=== PATIENT | female | born 1995 | race Caucasian/White ===

== ENCOUNTER 2018-05-29 10:43 | Inpatient (IN) | payer MEDICAID, OTHER ==
[~2018-05-29] VITALS: Ht 162.6 cm; Wt 61.2 kg
[2018-05-29 11:32] VITALS: BP 103/55
[2018-05-29] MEDS ORDERED: ACETAMINOPHEN 325 MG TAB PO ONE (12:10)
[2018-05-29] MEDS ORDERED: ACETAMINOPHEN 325 MG TAB ONE (12:12)
[2018-05-29] MEDS ORDERED: PREN-546 PO (13:54)
== END 2018-05-29 14:51 | disposition home or self-care (01) | DRG 566 ==
LOC: EDSTATUS 10:50 → MFCC 10:55 → EDSTATUS 10:59
PROVIDERS: ADMIT Obstetrics & Gynecology; ATTEND Obstetrics & Gynecology
DX: O26.891 Other specified pregnancy related conditions, first trimester (principal); R10.9 Unspecified abdominal pain; Z3A.01 Less than 8 weeks gestation of pregnancy
CPT/HCPCS: 76805; 81000; Q0092

== ENCOUNTER 2018-07-08 07:05 | Observation (INO) | payer OTHER ==
[~2018-07-08] VITALS: Ht 162.6 cm; Wt 65.8 kg
[~2018-07-08 07:05] MED LIST: PREN-546 PO
[2018-07-08] MEDS ORDERED: FERR-252 PO (08:00)
--- NOTE | 2018-07-08 08:04 | NUR ---
PATIENT HAS BEEN SCREENED AND CATEGORIZED LOW NUTRITION RISK. PATIENT WILL BE SEEN WITHIN 7 DAYS OF ADMISSION. 07/14/[address]
[2018-07-08 08:29] LABS: BASOPHILS % (AUTO) 0.3 % (0.0-2.0); EOSINOPHILS # (AUTO) 0.1 K/uL (0-0.4); EOSINOPHILS % (AUTO) 1.2 % (0.0-4.0); HEMATOCRIT 33.6 % (36-48); HEMOGLOBIN 11.1 g/dL (12.0-16.0); LYMPHOCYTES # (AUTO) 2.4 K/uL (2.5-16.5); LYMPHOCYTES % (AUTO) 30.3 % (20.5-51.1); MEAN CORPUSCULAR HEMOGLOBIN 29 pg (27-31); MEAN CORPUSCULAR HGB CONC 33 g/dL (33-37); MEAN CORPUSCULAR VOLUME 87.2 fL (80-94); MONOCYTES # (AUTO) 0.9 K/uL (0.8-1.0); MONOCYTES % (AUTO) 11.1 % (1.7-9.3); NEUTROPHILS # (AUTO) 4.5 K/uL (1.8-7.7); NEUTROPHILS % (AUTO) 57.1 % (42.2-75.2); PLATELET COUNT (AUTO) 184 K/uL (140-450); RED BLOOD CELL COUNT(AUTO) 3.86 MIL/uL (4.20-5.40); RED CELL DISTRIBUTION WIDTH 14.2 % (11.6-13.7); WHITE BLOOD COUNT (AUTO) 7.9 K/uL (4.8-10.8)
[2018-07-08 08:43] LABS: ANION GAP 7.5 (8-16); CARBON DIOXIDE 24.2 mmol/L (21-32); CREATININE 0.5 mg/dL (0.6-1.3); POTASSIUM 3.7 mmol/L (3.5-5.1)
[2018-07-08 08:49] LABS: ALBUMIN 2.3 g/dL (3.4-5.0); TOTAL BILIRUBIN 0.2 mg/dL (0.0-1.0)
== END 2018-07-08 09:40 | disposition home or self-care (01) ==
LOC: MLD 07:05
PROVIDERS: ADMIT Obstetrics & Gynecology; ATTEND Obstetrics & Gynecology
DX: O26.893 Other specified pregnancy related conditions, third trimester (principal); R10.11 Right upper quadrant pain; Z3A.34 34 weeks gestation of pregnancy
CPT/HCPCS: 36415; 76705; 80053; 81000; 85025; G0378; Q0092

== ENCOUNTER 2018-08-03 15:27 | Emergency (ER) | payer OTHER ==
[~2018-08-03] VITALS: Ht 162.6 cm; Wt 68.1 kg
[2018-08-03 14:54] VITALS: BP 111/77
[~2018-08-03 15:27] MED LIST changes: +FERR-252 PO
[2018-08-03 15:30] VITALS: BP 116/74
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
--- NOTE | 2018-08-03 15:47 | NUR ---
PT WAS TAKEN TO BED 12 BY WHEELCHAIR.
--- NOTE | 2018-08-03 16:15 | NUR ---
DR KWON MADE AWARE OF PATIENTS PERSISTENT "SEVERE" HEAD PAIN.
[2018-08-03 16:41] LABS: BASOPHILS % (AUTO) 0.1 % (0.0-2.0); EOSINOPHILS % (AUTO) 0.3 % (0.0-4.0); HEMATOCRIT 33.5 % (36-48); HEMOGLOBIN 10.9 g/dL (12.0-16.0); LYMPHOCYTES # (AUTO) 2.5 K/uL (2.5-16.5); LYMPHOCYTES % (AUTO) 30.7 % (20.5-51.1); MEAN CORPUSCULAR HEMOGLOBIN 27 pg (27-31); MEAN CORPUSCULAR HGB CONC 33 g/dL (33-37); MEAN CORPUSCULAR VOLUME 83.8 fL (80-94); MONOCYTES # (AUTO) 0.9 K/uL (0.8-1.0); MONOCYTES % (AUTO) 11.3 % (1.7-9.3); NEUTROPHILS # (AUTO) 4.7 K/uL (1.8-7.7); NEUTROPHILS % (AUTO) 57.6 % (42.2-75.2); PLATELET COUNT (AUTO) 179 K/uL (140-450); RED BLOOD CELL COUNT(AUTO) 3.99 MIL/uL (4.20-5.40); RED CELL DISTRIBUTION WIDTH 16.1 % (11.6-13.7); WHITE BLOOD COUNT (AUTO) 8.2 K/uL (4.8-10.8)
[2018-08-03] MEDS ORDERED: ACETAMINOPHEN EXTRA STRENGTH 500 MG TAB PO ONE (16:55)
[2018-08-03 17:01] LABS: ANION GAP 12.8 (8-16); CARBON DIOXIDE 23.8 mmol/L (21-32); CREATININE 0.6 mg/dL (0.6-1.3); POTASSIUM 3.6 mmol/L (3.5-5.1)
[2018-08-03 17:35] VITALS: BP 116/74
--- NOTE | 2018-08-03 17:35 | NUR ---
Patient discharged with v/s stable. Written and verbal after care instructions given and explained. Patient verbalized understanding. Ambulatory with steady gait. All questions addressed prior to discharge. Advised to follow up with PMD.
== END 2018-08-03 17:35 | disposition home or self-care (01) ==
LOC: EDSTATUS 15:27 → MED 15:27
DX: O26.893 Other specified pregnancy related conditions, third trimester (principal); R51 Headache; Z3A.36 36 weeks gestation of pregnancy; Z91.010 Allergy to peanuts; Z88.1 Allergy status to other antibiotic agents
CPT/HCPCS: 36415; 80048; 85025; 99284

== ENCOUNTER 2019-02-14 09:27 | Emergency (ER) | payer OTHER ==
[~2019-02-14] VITALS: Ht 162.6 cm; Wt 53.1 kg
--- NOTE | 2019-02-14 09:27 | NUR ---
PT AMBULATED TO ER BED 12
[2019-02-14 09:41] VITALS: BP 97/52
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
[2019-02-14] MEDS ORDERED: IBUPROFEN 400 MG TAB PO ONE (10:30)
[2019-02-14 11:03] VITALS: BP 97/52
== END 2019-02-14 11:04 | disposition home or self-care (01) ==
LOC: MED 09:27
DX: S39.012A Strain of muscle, fascia and tendon of lower back, initial encounter (principal); S80.02XA Contusion of left knee, initial encounter; S80.01XA Contusion of right knee, initial encounter; M79.602 Pain in left arm; Z79.899 Other long term (current) drug therapy; Z88.1 Allergy status to other antibiotic agents; Z91.010 Allergy to peanuts; V89.2XXA Person injured in unspecified motor-vehicle accident, traffic, initial encounter; Y93.89 Activity, other specified; Y92.89 Other specified places as the place of occurrence of the external cause; Y99.8 Other external cause status
CPT/HCPCS: 99282

== ENCOUNTER 2019-09-19 12:07 | Emergency (ER) | payer OTHER ==
[~2019-09-19] VITALS: Ht 162.6 cm; Wt 54.4 kg
[2019-09-19 12:13] VITALS: BP 90/71
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
[2019-09-19] MEDS ORDERED: IBUPROFEN 600 MG TAB PO ONE (12:45)
[2019-09-19] MEDS ORDERED: traMADol 50 MG TAB PO ONE (14:00)
--- NOTE | 2019-09-19 14:10 | NUR ---
PT STILL RATES PAIN 06/06, REQUESTED A STRONGER PAIN MED. NOTIFIED .
[2019-09-19 14:20] VITALS: BP 127/72
== END 2019-09-19 14:21 | disposition home or self-care (01) ==
LOC: MED 12:07
DX: S39.012A Strain of muscle, fascia and tendon of lower back, initial encounter (principal); S33.5XXA Sprain of ligaments of lumbar spine, initial encounter; S76.011A Strain of muscle, fascia and tendon of right hip, initial encounter; S86.911A Strain of unspecified muscle(s) and tendon(s) at lower leg level, right leg, initial encounter; S73.101A Unspecified sprain of right hip, initial encounter; S83.91XA Sprain of unspecified site of right knee, initial encounter; Z79.899 Other long term (current) drug therapy; Z91.010 Allergy to peanuts; Z88.0 Allergy status to penicillin; Z91.018 Allergy to other foods; V49.49XA Driver injured in collision with other motor vehicles in traffic accident, initial encounter; Y93.89 Activity, other specified; Y92.410 Unspecified street and highway as the place of occurrence of the external cause; Y99.8 Other external cause status
CPT/HCPCS: 72100; 72170; 81025; 99284

== ENCOUNTER 2021-07-24 13:59 | Emergency (ER) | payer OTHER ==
[~2021-07-24] VITALS: Ht 162.6 cm; Wt 57.2 kg
[2021-07-24 14:04] VITALS: BP 102/63
--- NOTE | 2021-07-24 14:14 | NUR ---
PT AMB TO BED 8
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
--- NOTE | 2021-07-24 14:21 | NUR ---
Pt states she is unable to provide urine at this time
--- NOTE | 2021-07-24 14:26 | NUR ---
Dr Sweet at bedside evaluating pt
[2021-07-24 15:02] LABS: BASOPHILS % (AUTO) 0.1 % (0.0-2.0); EOSINOPHILS # (AUTO) 0.1 K/uL (0-0.4); EOSINOPHILS % (AUTO) 1.8 % (0.0-4.0); HEMATOCRIT 37.1 % (36-48); HEMOGLOBIN 12.5 g/dL (12.0-16.0); LYMPHOCYTES % (AUTO) 34.4 % (20.5-51.1); MEAN CORPUSCULAR HEMOGLOBIN 32 pg (27-31); MEAN CORPUSCULAR HGB CONC 34 g/dL (33-37); MEAN CORPUSCULAR VOLUME 93.9 fL (80-94); MONOCYTES # (AUTO) 0.5 K/uL (0.8-1.0); MONOCYTES % (AUTO) 8.6 % (1.7-9.3); NEUTROPHILS # (AUTO) 3.2 K/uL (1.8-7.7); NEUTROPHILS % (AUTO) 55.1 % (42.2-75.2); PLATELET COUNT (AUTO) 238 K/uL (140-450); RED BLOOD CELL COUNT(AUTO) 3.95 MIL/uL (4.20-5.40); RED CELL DISTRIBUTION WIDTH 12.8 % (11.6-13.7); WHITE BLOOD COUNT (AUTO) 5.8 K/uL (4.8-10.8)
[2021-07-24 15:05] LABS: APPEARANCE,URINE CLEAR (CLEAR); BILIRUBIN,URINE NEGATIVE (NEGATIVE); BLOOD, URINE 3+ (NEGATIVE); COLOR,URINE YELLOW (YELLOW); LEUKOCYTE ESTERASE ,URINE TRACE (NEGATIVE); NITRITE, URINE NEGATIVE (NEGATIVE); UGLUCOSE NEGATIVE (NEGATIVE)
[2021-07-24 15:17] LABS: ANION GAP 8.3 (8-16); CARBON DIOXIDE 29.4 mmol/L (21-32); CREATININE 0.7 mg/dL (0.6-1.3); POTASSIUM 3.7 mmol/L (3.5-5.1)
[2021-07-24 16:01] LABS: RBC,URINE 11-20 (MOD) /HPF (0-5); WBC,URINE 0-5 /HPF (0-5)
[2021-07-24] MEDS ORDERED: KETOROLAC 60 MG/2 ML VIAL IM ONE (16:35)
[2021-07-24] MEDS ORDERED: METR-435 PO (17:10)
[2021-07-24] MEDS ORDERED: MEDR10TA PO (17:10)
[2021-07-24] MEDS ORDERED: IBUP-2213 PO (17:10)
[2021-07-24] MEDS ORDERED: DOXY-487 PO (17:10)
[2021-07-24 17:17] VITALS: BP 102/63
--- NOTE | 2021-07-24 17:18 | NUR ---
Patient discharged with v/s stable. Written and verbal after care instructions given and explained. Patient alert, oriented and verbalized understanding of instructions. Ambulatory with steady gait. All questions addressed prior to discharge. ID band removed. Patient advised to follow up with PMD. Rx of Doxycycline, Flagyl, Motrin, Provera given. Patient educated on indication of medication including possible reaction and side effects. Opportunity to ask questions provided and answered.
== END 2021-07-24 17:18 | disposition home or self-care (01) ==
LOC: MED 13:59
DX: N93.8 Other specified abnormal uterine and vaginal bleeding (principal); R42 Dizziness and giddiness; Z88.1 Allergy status to other antibiotic agents; Z91.010 Allergy to peanuts; Z79.899 Other long term (current) drug therapy
CPT/HCPCS: 36415; 76856; 80048; 81001; 85025; 93976; 96372; 99284; J1885; Q0092